=== PATIENT | female | born 1950 | race Caucasian/White ===

== ENCOUNTER 2016-07-14 14:44 | Emergency (ER) | payer MEDICARE, OTHER ==
[~2016-07-14] VITALS: Ht 157.5 cm; Wt 104.3 kg
[~2016-07-14 14:44] MED LIST: ALPR0.5T6 PO; ALPR1TAB6 PO; ALPR2TAB5 PO; HYDR-2758 PO; HYDR12.58 PO; POTA20TA4 PO; TIZA4TAB PO; TRAM50TA PO
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
--- NOTE | 2016-07-14 16:33 | EKG ---
[facility] [address] [place] [address] Test Date: 2016-07-14 Test Time: 14:51:26 Pat Name: ENDY PATEL Department: Room: Gender: F [employer]er: : 1950 Requested By: Ritika BECK Order Number: [id number] Reading MD: Dyan Saravia Measurements Intervals Albert Rate: 95 P: 27 MI: 150 QRS: 34 QRSD: 100 T: 31 QT: 324 QTc: 410 Interpretive Statements SINUS RHYTHM NORMAL EKG Electronically Signed On 07-16-2016 19:06:39 CDT by Dyan Saravia
[2016-07-14 16:43] VITALS: BP 150/115
== END 2016-07-14 16:57 | disposition home or self-care (01) ==
LOC: ER 14:44
DX: I10 Essential (primary) hypertension (principal); G89.29 Other chronic pain; M54.9 Dorsalgia, unspecified; G56.03 Carpal tunnel syndrome, bilateral upper limbs; Z90.89 Acquired absence of other organs
CPT/HCPCS: 93005; 99284-25

== ENCOUNTER 2016-07-16 23:05 | Emergency (ER) | payer MEDICARE, OTHER ==
[2016-07-16 23:14] VITALS: BP 167/79
[2016-07-17 00:26] LABS: BILIRUBIN,URINE NEGATIVE (NEG); GLUCOSE,URINE NEGATIVE (NEG); NITRITE,URINE NEGATIVE (NEG); PROTEIN,URINE NEGATIVE (NEG-TRACE); UROBILINOGEN,URINE 0.2 mg/dL (0.2 mg/dL)
[2016-07-17 00:53] LABS: BACTERIA,URINE 0 /HPF (0-FEW); RBC,URINE OCC /HPF (0-2); SQUAMOUS EPITHELIAL CELL,UR FEW /LPF; WBC,URINE OCC /HPF (0-4)
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
== END 2016-07-17 01:50 | disposition home or self-care (01) ==
LOC: ER 23:05
DX: R30.0 Dysuria (principal); E78.00 Pure hypercholesterolemia, unspecified; F20.9 Schizophrenia, unspecified; G56.03 Carpal tunnel syndrome, bilateral upper limbs; I10 Essential (primary) hypertension; G89.29 Other chronic pain; Z88.8 Allergy status to other drugs, medicaments and biological substances; Z91.048 Other nonmedicinal substance allergy status; Z90.89 Acquired absence of other organs; Z98.82 Breast implant status
CPT/HCPCS: 81001; 99283; P9612